=== PATIENT | female | born 1980 | race African-American/Black ===

== ENCOUNTER 2016-08-09 09:02 | Emergency (ER) | payer OTHER ==
--- NOTE | ~2016-08-09 | CT4 ---
[facility] A Service of [facility] RADIOLOGY TEXT RESULTS PATIENT: ZENAIDA HENRY LOCATION: CFT[facility] : 82 UNIT #: [id number] AGE: [address]: Trista Rao MD SEX: F ORDER DR: [id number] [facility] [place], [place] [address] [id number] MR#: [id number] Acc #: [id number] NAME: ZENAIDA HENRY : 1980 SEX: F STUDY DATE/TIME: 08/09/2016 11:48 UNIT: CFTX ROOM: STUDY DESCRIPTION: CT Abd and Pelv Wo Cont Attending Physician: Trista Rao M.D. Ordering Physician: Trista Rao M.D. Primary Care Physician: Primary Care Physician No MEDICAL IMAGING REPORT This report is preliminary unless electronic signature is present EXAM Abdomen and pelvis CT no contrast, 08/09/2016 INDICATION Left-sided abdominal pain since August 06. TECHNIQUE Noncontrast abdomen and pelvis CT was performed. This CT exam was performed with one or more of the following radiation dose reduction techniques: automatic exposure control, adjustment of mA and/or kV according to patient size, and iterative reconstruction. COMPARISON 01/28/[address] ABDOMEN: Exam markedly degraded by noncontrast technique. Included lung bases clear. No effusion or pericardial effusion. Aorta demonstrates no aneurysm. The spleen, adrenal glands, and pancreas are unremarkable. Gallbladder and liver are unremarkable. The kidneys demonstrate no radiopaque stone or hydronephrosis on either side. Ureters not well visualized or assessed but no secondary sign of obstruction on either side. There are calcifications in close proximity to the expected location of the left UVJ without secondary sign of obstruction. These are favored to be vascular rather than related to the left ureter. No adenopathy. CT PELVIS: Bladder unremarkable. Trace free fluid in the pelvis likely physiologic. There is no adnexal mass or drainable fluid collection. Bowel demonstrates no obstruction or focal inflammatory change. The appendix is normal. Inguinal canals unremarkable. There is no suspicious [facility] A Service of [facility] RADIOLOGY TEXT RESULTS PATIENT: ZENAIDA HENRY [id number] [birth year] UNIT #: [id number] AGE: [address]: Trista Rao MD SEX: F ORDER DR: bone lesion. IMPRESSION 1. Negative noncontrast abdomen and pelvis CT. No radiopaque stone, hydronephrosis or other acute finding. The appendix is normal. 2. Trace free fluid in the pelvis within the physiologic range. Dictated by... Geronimo Duron M.D. THIS IS AN ELECTRONICALLY VERIFIED REPORT Geronimo Duron M.D. at 08/09/2016 4:32 PM Waldemar TD: 08/09/2016 14:27 JOB #: [id number] MEDICAL IMAGING REPORT Page 1 of 1 COPY
[~2016-08-09 09:02] MED LIST: LORTAB 5/500 TA1 TA1 PO; PHENERGAN25 MG PO
[2016-08-09 10:08] LABS: BASOPHIL% 0.6 % (0-2.5); EOSINOPHIL# 0.1 X10e3 (0-0.7); HEMATOCRIT 42.7 % (35.0-45.0); LYMPHOCYTE# 1.9 X10e3 (1.0-3.5); LYMPHOCYTE% 44.2 % (17.0-45.0); MEAN CELL VOLUME 86.2 FL (83-96); MEAN CORPUSCULAR HEMOGLOBIN 28.2 PG (28-34); MEAN CORPUSCULAR HGB CONC 32.7 g/dL (30-36); MEAN PLATELET VOLUME 8.5 FL (6.5-11.5); MONOCYTE# 0.3 X10e3 (0-1.0); MONOCYTE% 5.8 % (3.0-12.0); NEUTROPHIL# 2.1 X10e3 (1.5-7.1); NEUTROPHIL% 47.4 % (40-75); PLATELET COUNT 236 X10e3 (140-420); RED BLOOD COUNT 4.95 X10e (3.90-5.30); RED CELL DISTRIBUTION WIDTH 14.7 % (11.0-15.5); WHITE BLOOD COUNT 4.4 X10e3 (4.0-10.5)
[2016-08-09 10:14] LABS: DIFF IND NO
[2016-08-09 10:27] LABS: ALBUMIN SERUM 4.3 g/dL (3.5-5.0); BILIRUBIN, DIRECT 0.1 mg/dL (0.0-0.2); BILIRUBIN,INDIRECT 0.3 mg/dL (0.0-0.9); BILIRUBIN,TOTAL 0.4 mg/dL (0.2-2.0); BUN/CREATININE RATIO 17.14; CALCIUM SERUM 9.3 mg/dL (8.4-10.2); CREATININE SERUM 0.7 mg/dL (0.6-1.4); POTASSIUM 3.9 mmol/L (3.5-5.1); PROTEIN TOTAL SERUM 7.8 g/dL (6.0-8.3)
[2016-08-09 11:22] LABS: URINE SOURCE CLEAN CATCH
[2016-08-09 11:28] LABS: URINE APPEARANCE CLEAR; URINE BILIRUBIN NEG (NEG); URINE BLOOD NEG (NEG); URINE COLOR YELLOW; URINE GLUCOSE NEG (NEG); URINE KETONE TRACE (NEG); URINE LEUKOCYTE ESTERASE NEG (NEG); URINE NITRATE NEG (NEG); URINE PROTEIN NEG (NEG); URINE SPECIFIC GRAVITY 1.026 (1.003-1.035); URINE UROBILINOGEN 0.2 MG/DL (NEG)
[2016-08-09 11:31] LABS: CULTURE INDICATED? NO
== END 2016-08-09 13:30 | disposition home or self-care (01) ==
LOC: CED 09:02 → CFTX 11:09
DX: R10.30 Lower abdominal pain, unspecified (principal); R11.2 Nausea with vomiting, unspecified; J45.909 Unspecified asthma, uncomplicated; Z88.5 Allergy status to narcotic agent; Z79.899 Other long term (current) drug therapy
CPT/HCPCS: 36415; 74176; 80048; 80076; 81003; 83690; 84703; 85025; 96361; 96374; 99284; J2270; J2405